=== PATIENT | female | born 1975 | race Caucasian/White ===

== ENCOUNTER 2022-06-03 04:23 | Day surgery (SDC) | payer BC, OTHER ==
[2022-05-27 15:43] VITALS: BMI 25.2
[2022-06-03 08:55] VITALS: TEMP 98
[2022-06-03 09:04] VITALS: BP 96/49; PULSE 55
== END 2022-06-03 09:12 | disposition home or self-care (01) ==
LOC: JASU-ENDO 04:23
PROVIDERS: ATTEND Internal Medicine Gastroenterology
PROC: 0DJD8ZZ Inspection of Lower Intestinal Tract, Via Natural or Artificial Opening Endoscopic (ICD-10-PCS; principal; 2022-06-03 08:00)
DX: Z12.11 Encounter for screening for malignant neoplasm of colon (principal); Z83.71 Family history of colonic polyps
CPT/HCPCS: 81025